=== PATIENT | male | born 1985 | race African-American/Black ===

== ENCOUNTER 2020-01-28 17:24 | Emergency (ER) | payer MEDICAID, OTHER ==
[~2020-01-28] VITALS: Ht 188 cm; Wt 85.0 kg
[2020-01-28 21:05] VITALS: BP 134/85
== END 2020-01-28 21:21 | disposition home or self-care (01) ==
LOC: ER 17:24
DX: R21 Rash and other nonspecific skin eruption (principal); Z98.890 Other specified postprocedural states
CPT/HCPCS: 99283